=== PATIENT | female | born 1985 | race Caucasian/White ===

== ENCOUNTER 2022-07-06 14:53 | Emergency (ER) | payer OTHER, SELFPAY ==
[2022-07-06 15:11] VITALS: BP 127/79; PULSE 127; RESP 18; TEMP 37.1; O2SAT 97; BMI 32.5
--- NOTE | 2022-07-06 15:11 | ED_ITS ---
HPI - General Adult General Chief complaint: General Medical <CHILO Sheffield - Last Filed: 07/06/22 15:15> Stated complaint: Lightheaded Nausea Etc <CHILO Sheffield Last Filed: 07/06/22 15:15> Time Seen by Provider: 07/06/22 16:14 <CHILO Sheffield - Last Filed: 07/06/22 15:15> Source: patient <Yolette Wilkinson NP - Last Filed: 07/06/22 18:02> Mode of arrival: ambulatory <Yolette Wilkinson NP - Last Filed: 07/06/22 18:02> Limitations: no limitations <RACHEL Brock Last Filed: 07/06/22 18:02> History of Present Illness HPI narrative: 36-year-old female here with body aches, headache, runny nose, nausea cough, chills since Tuesday. No vomiting, diarrhea, chest pain, shortness of breath, fever, neck pain or neck stiffness, skin rash. Patient reports last week her son was sick with similar symptoms. <Yolette Wilkinson NP - Last Filed: 07/06/22 18:02> Related Data Allergies/adverse reactions: Allergies Allergy/AdvReac Type Severity Reaction Status Date / Time No Known Allergies Allergy Unverified 04/10/20 15:38 <CHILO Sheffield - Last Filed: 07/06/22 15:15> Review of Systems Review of Systems: Yes all other systems are reviewed and are negative <RACHEL Brock Last Filed: 07/06/22 18:02> Constitutional: Constitutional: Reports no additional constitutional complaints, Reports body ache(s), Reports chills, Denies fever(s), Reports headache(s) and Denies weakness <RACHEL Brock Last Filed: 07/06/22 18:02> Eyes: Eyes: Reports no additional eye complaints and Denies change in vision <RACHEL Brock Last Filed: 07/06/22 18:02> ENT: Reports system reviewed and no additional complaints, except as documented, Denies dizziness, Reports headache(s), Denies nasal congestion, Reports nasal discharge and Denies neck pain <Yolette Wilkinson NP - Last Filed: 07/06/22 18:02> Cardiovascular: Cardiovascular: Reports no additional cardiovascular complaints, Denies chest pain, Denies leg edema and Denies dyspnea <Yolette Wilkinson NP - Last Filed: 07/06/22 18:02> Respiratory: Respiratory: Reports no additional respiratory complaints, Reports cough and Denies dyspnea <Yolette Wilkinson NP - Last Filed: 07/06/22 18:02> Gastrointestinal: Gastrointestinal: Reports no additional gastrointestinal complaints, Denies abdominal pain, Denies diarrhea, Reports nausea and Denies vomiting <Yolette Wilkinson NP - Last Filed: 07/06/22 18:02> Genitourinary: Genitourinary: Reports no additional female genitourinary complaints and Denies urinary incontinence <Yolette Wilkinson NP - Last Filed: 07/06/22 18:02> Musculoskeletal: Musculoskeletal: Reports no additional musculoskeletal complaints, Denies back pain, Denies arthralgias, Denies joint swelling, Denies neck pain, Denies numbness and Denies tingling <Yolette Wilkinson NP - Last Filed: 07/06/22 18:02> Integumentary/Breasts: Skin/Breast: Reports system reviewed and no additional complaints, except as docu and Denies rash <Yolette Wilkinson NP - Last Filed: 07/06/22 18:02> Neurologic: Reports system reviewed and no additional complaints, except as documented, Denies dizziness, Reports headache(s), Denies numbness, Denies tingling and Denies weakness <Yolette Wilkinson NP - Last Filed: 07/06/22 18:02> [facility] Past Medical History Attestation statement: The following information was validated with the patient. <Yolette Wilkinson NP - Last Filed: 07/06/22 18:02> Source: old records reviewed and nursing notes reviewed <Yolette Wilkinson NP - Last Filed: 07/06/22 18:02> Social History Social History: Social History Advance Directives: No Advance Directives Information Provided: Yes <CHILO Sheffield - Last Filed: 07/06/22 15:15> Physical Exam ED Vital Signs: Vital Signs - 24 hr 07/06/22 15:11 07/06/22 16:26 07/06/22 17:42 Temperature 98.8 F 99.8 F 98.8 F Pulse Rate 127 H 122 H 122 H Respiratory Rate 18 Blood Pressure 127/79 Pulse Oximetry 97 96 Oxygen Delivery Method Room Air Room Air BMI result Body Mass Index 32.5 <CHILO Sheffield - Last Filed: 07/06/22 15:15> Vital Signs - 24 hr 07/06/22 15:11 07/06/22 16:26 07/06/22 17:42 Temperature 98.8 F 99.8 F 98.8 F Pulse Rate 127 H 122 H 122 H Respiratory Rate 18 Blood Pressure 127/79 Pulse Oximetry 97 96 Oxygen Delivery Method Room Air Room Air BMI result Body Mass Index 32.5 <Yolette Wilkinson NP - Last Filed: 07/06/22 18:02> Const General: cooperative, healthy appearing, comfortable and no acute distress <Yolette Wilkinson NP - Last Filed: 07/06/22 18:02> Orientation/consciousness: patient oriented x3 <Yolette Wilkinson NP - Last Filed: 07/06/22 18:02> Limitations: no limitations <Yolette Wilkinson NP - Last Filed: 07/06/22 18:02> HENMT Head: Yes normal to inspection <Yolette Wilkinson NP - Last Filed: 07/06/22 18:02> Ears: hearing grossly normal bilaterally and TM's normal bilaterally <Yolette Wilkinson NP - Last Filed: 07/06/22 18:02> General nose exam: Normal external nose present <Yolette Wilkinson NP - Last Filed: 07/06/22 18:02> Face and sinus: Yes normal facial exam <Yolette Wilkinson NP - Last Filed: 07/06/22 18:02> Mouth: Normal oral and palatal mucosa present <Yolette Wilkinson NP - Last Filed: 07/06/22 18:02> Throat: Yes posterior oropharynx normal, Yes tonsils normal and Yes uvula midline <Yolette Wilkinson NP - Last Filed: 07/06/22 18:02> Eyes General: appearance normal, both eyes and all related structures <Yolette Wilkinson NP - Last Filed: 07/06/22 18:02> Pupils: Equal, round and reactive pupils present <Yolette Wilkinson NP - Last Filed: 07/06/22 18:02> Neck Neck: Yes normal visual inspection, Yes full ROM, Yes no lymphadenopathy and Yes no meningeal signs <Yolette Wilkinson NP - Last Filed: 07/06/22 18:02> Chest Chest palpation & inspection: normal inspection of the chest <Yolette Wilkinson NP - Last Filed: 07/06/22 18:02> Resp Effort & Inspection: normal respiratory effort <Yolette Wilkinson NP - Last Filed: 07/06/22 18:02> Auscultation: clear to auscultation bilaterally <Yolette Wilkinson NP - Last Filed: 07/06/22 18:02> Cardio Rate: regular rate <Yolette Wilkinson NP - Last Filed: 07/06/22 18:02> Rhythm: regular rhythm <Yolette Wilkinson NP - Last Filed: 07/06/22 18:02> Peripheral pulses: Peripheral pulses 2+ throughout <Yolette Wilkinson NP - Last Filed: 07/06/22 18:02> GI Inspection: Yes normal to inspection <Yolette Wilkinson NP - Last Filed: 07/06/22 18:02> Palpation (GI): Soft to palpation and nontender <Yolette Wilkinson NP - Last Filed: 07/06/22 18:02> General: Yes no CVA tenderness <Yolette Wilkinson NP - Last Filed: 07/06/22 18:02> Back/Spine/Pelvis Back: no CVA tenderness <Yolette Wilkinson NP - Last Filed: 07/06/22 18:02> Thoracic/Lumbar Spine: thoracic and lumbar spine normal to inspection <Yolette Wilkinson NP - Last Filed: 07/06/22 18:02> Skin General skin exam: no rashes or lesions noted <Yolette Wilkinson NP - Last Filed: 07/06/22 18:02> Neuro General: patient oriented x3, moves all extremities and no meningeal signs <Yolette Wilkinson NP - Last Filed: 07/06/22 18:02> Cranial nerves: Yes Equal, round and reactive pupils present <Yolette Wilkinson NP - Last Filed: 07/06/22 18:02> Cognition (Neuro): normal cognition <Yolette Wilkinson NP - Last Filed: 07/06/22 18:02> Gait exam (Neuro): Normal gait present <Yolette Wilkinson NP - Last Filed: 07/06/22 18:02> Extrem General: Yes normal to inspection, Yes no pedal edema and Yes no calf tenderness <Yolette Wilkinson NP - Last Filed: 07/06/22 18:02> Course Course Course Narrative: 15:15pm - 36yoF presenting to the ED c c/o chills, fatigue c associated nasal cogestion/rhinorrhea, cough and nausea since Tuesday Worse Today. Son has similar symptoms 1 week ago although he is better now. Denies measured fevers, sore throat, ear pain, vomiting, CP/SOB, abd pain, dysuria, rashes or recent travel. Denies any other symptoms complaints or concerns. Plan: COVID/RSV/flu swab, UA, UHCG. UA, UHCG. Patient is stable she will be sent back to the waiting room for further evaluation treatment to the Emergency minor care. <CHILO Sheffield - Last Filed: 07/06/22 15:15> Reevaluation(s) Reevaluation #1: Influenza a positive. Due to onset of symptoms patient would not be a candidate for Tamiflu. Patient continues some tachycardia given her temperature has improved. This is likely secondary to some mild dehydration. Low concern for PE with no hypoxia, no tachypnea, no clinical findings concerning for DVT, no risk factors. I did offer IV placement IV fluids the patient preferred orally rehydrate at home. Recommended increasing fluids at home, Motrin or Tylenol for pain or fever and following up primary care doctor for any persistent symptoms. Reviewed worrisome signs and symptoms of when to return to the emergency room. Comfortable plan for discharge home. <Yolette Wilkinson NP - Last Filed: 07/06/22 18:02> Medications Administered Discontinued Medications Generic Name Dose Route Start Last Admin Trade Name Freq PRN Reason Stop Dose Admin Acetaminophen 975 mg 07/06/22 16:28 07/06/22 16:33 Acetaminophen 325 Mg Tablet PO 07/06/22 16:29 975 mg ONCE ONE Administration Ibuprofen 600 mg 07/06/22 16:28 07/06/22 16:33 Ibuprofen 600 Mg Tablet PO 07/06/22 16:29 600 mg ONCE ONE Administration <CHILO Sheffield - Last Filed: 07/06/22 15:15> Medications Administered Discontinued Medications Generic Name Dose Route Start Last Admin Trade Name Freq PRN Reason Stop Dose Admin Acetaminophen 975 mg 07/06/22 16:28 07/06/22 16:33 Acetaminophen 325 Mg Tablet PO 07/06/22 16:29 975 mg ONCE ONE Administration Ibuprofen 600 mg 07/06/22 16:28 07/06/22 16:33 Ibuprofen 600 Mg Tablet PO 07/06/22 16:29 600 mg ONCE ONE Administration <Yolette Wilkinson NP - Last Filed: 07/06/22 18:02> Medical Decision Making Medical Decision Making MDM Narrative: 36-year-old female here with flu-like symptoms since Tuesday. Patient mildly tachycardic on arrival. Will check testing for flu, COVID, RSV and reassess heart rate <Yolette Wilkinson NP - Last Filed: 07/06/22 18:02> Differential Diagnosis Differential Diagnoses: The differential diagnosis associated with the presentation includes <Yolette Wilkinson NP - Last Filed: 07/06/22 18:02> Lab Data Labs: Lab Results 07/06/22 07/06/22 07/06/22 Range/Units 15:15 15:30 15:30 Urine Color Yellow Urine Appearance Clear Urine pH 5.5 (5.0-9.0) Ur Specific [place] 1.020 (1.005-1.025) Urine Protein Trace (Neg-Trace) mg/dL Urine Glucose (UA) Negative (Negative) mg/dL Urine Ketones Negative (Negative) mg/dL Urine Blood Moderate (2+) H (Negative) Urine Nitrite Negative (Negative) Ur Leukocyte Esterase Negative (Negative) Urine RBC 11-20 H (0-2) /HPF Urine WBC 0-5 (0-5) /HPF Ur Squamous Epith Cells 0-2 (0-2) /HPF Urine Bacteria None Seen (None Seen) Hyaline Casts 0-2 (0-2) /LPF Urine Test NEGATIVE (NEGATIVE) Influenza Type A (PCR) POSITIVE A (Negative) Influenza Type B (PCR) NEGATIVE (Negative) RSV RNA Qual (PCR) NEGATIVE (Negative) SARS-CoV-2 RNA (RT-PCR) NEGATIVE (Negative) <CHILO Sheffield - Last Filed: 07/06/22 15:15> Lab Results 07/06/22 07/06/22 07/06/22 Range/Units 15:15 15:30 15:30 Urine Color Yellow Urine Appearance Clear Urine pH 5.5 (5.0-9.0) Ur Specific [place] 1.020 (1.005-1.025) Urine Protein Trace (Neg-Trace) mg/dL Urine Glucose (UA) Negative (Negative) mg/dL Urine Ketones Negative (Negative) mg/dL Urine Blood Moderate (2+) H (Negative) Urine Nitrite Negative (Negative) Ur Leukocyte Esterase Negative (Negative) Urine RBC 11-20 H (0-2) /HPF Urine WBC 0-5 (0-5) /HPF Ur Squamous Epith Cells 0-2 (0-2) /HPF Urine Bacteria None Seen (None Seen) Hyaline Casts 0-2 (0-2) /LPF Urine Test NEGATIVE (NEGATIVE) Influenza Type A (PCR) POSITIVE A (Negative) Influenza Type B (PCR) NEGATIVE (Negative) RSV RNA Qual (PCR) NEGATIVE (Negative) SARS-CoV-2 RNA (RT-PCR) NEGATIVE (Negative) <Yolette Wilkinson NP - Last Filed: 07/06/22 18:02> Discharge Plan Discharge Clinical Impression: Influenza A <CHILO Sheffield - Last Filed: 07/06/22 15:15> Patient Disposition: Still a Patient <CHILO Sheffield - Last Filed: 07/06/22 15:15> Instructions: Influenza (ED) <CHILO Sheffield - Last Filed: 07/06/22 15:15> Additional Instructions: Alternate Motrin and Tylenol for pain or fever Increase fluids, rest You need to drink a lot of fluids today and tomorrow. We did offer you an IV but you prefer to drink fluids Return for any worsening symptoms <CHILO Sheffield - Last Filed: 07/06/22 15:15> Referrals: Physician,Unknown J [Primary Care Provider] - <CHILO Sheffield - Last Filed: 07/06/22 15:15> Stand Alone Forms: Work/School Release <CHILO Sheffield - Last Filed: 07/06/22 15:15>
[2022-07-06 15:37] LABS: Appearance Urine Clear; Color Urine Yellow; Glucose Urine UA Negative (Negative); Leukocyte Esterase Urine Negative (Negative); Nitrite Urine Negative (Negative); PH 5.5 (5.0-9.0); UMIC TRIGGER UACC YES; Urine Blood Moderate (2+) (Negative); Urine Ketones Negative (Negative); Urine Protein Trace mg/dL (Neg-Trace)
[2022-07-06 15:38] LABS: UPreg QC Valid YES; Urine Pregnancy NEGATIVE (NEGATIVE)
[2022-07-06 15:39] LABS: Bacteria Urine None Seen (None Seen); Hyaline Casts Urine 0-2 /LPF (0-2); Squamous Epithelial Cell Urine 0-2 /HPF (0-2); WBC Urine 0-5 /HPF (0-5)
[2022-07-06 16:09] LABS: Influenza A PCR POSITIVE (Negative); Influenza B PCR NEGATIVE (Negative); Resp Syncy Virus RNA Qual PCR NEGATIVE (Negative); SARS COV2 PCR INHOUSE NEGATIVE (Negative)
[2022-07-06 16:26] VITALS: PULSE 122; TEMP 37.7
[2022-07-06] MEDS: Acetaminophen 325 MG TABLET 975 MG PO (16:33)
[2022-07-06] MEDS: Ibuprofen 600 MG TABLET PO (16:33)
[2022-07-06 17:42] VITALS: PULSE 122; TEMP 37.1; O2SAT 96
== END 2022-07-06 18:08 | disposition still patient (30) ==
PROVIDERS: Physician Assistant Medical; Emergency Provider Emergency Medicine
DX: J10.1 Influenza due to other identified influenza virus with other respiratory manifestations (principal); M79.10 Myalgia, unspecified site; R51.9 Headache, unspecified; R05.9 Cough, unspecified; R42 Dizziness and giddiness; Z20.822 Contact with and (suspected) exposure to COVID-19
CPT/HCPCS: 0241U; 81001; 81025; 99283